=== PATIENT | male | born 1960 | race Caucasian/White ===

== ENCOUNTER → 2021-07-03 | Outpatient (CLI) | payer SELFPAY ==
[~2021-07-03] MED LIST: IBUP80TA PO; OMEP-221 PO
== END ==
LOC: M LABSMTC 11:29
PROVIDERS: ATTEND Anesthesiology
DX: Z01.812 Encounter for preprocedural laboratory examination (principal)

== ENCOUNTER 2021-07-08 10:41 | Day surgery (SDC) | payer OTHER ==
[~2021-07-08] VITALS: Ht 188 cm; Wt 103.0 kg
[~2021-07-08 10:41] MED LIST changes: +NS 1,000 ML IV ONE
[2021-07-08] MEDS ORDERED: propofoL 200 MG/20 ML VIAL As Ordered ONE ×2 (12:07→12:28)
[2021-07-08] MEDS ORDERED: LIDOCAINE 2% 100MG/5ML SDV (FOR ANES.) As Ordered ONE (12:07)
[2021-07-08] MEDS ORDERED: fentaNYL 100 MCG/2 ML INJECTION (J3010) As Ordered ONE (12:07)
--- NOTE | 2021-07-08 12:28 | ROOR ---
Patient Name: Luis Fernando Foster Procedure Date: 07/08/2021 12:09 PM Date of : 1960 Age: 61 Room: [facility] Gender: Male Note Status: Finalized Procedure: Upper Endoscopy + Biopsies Indications: Heartburn, Follow-up of Plummer's esophagus Providers: Clint Butler MD Referring MD: Sarah RODRIGUEZ NP Requesting Provider: Medicines: Monitored Anesthesia Care Complications: No immediate complications. Procedure: Pre-Anesthesia Assessment: - The heart rate, respiratory rate, oxygen saturations, blood pressure, adequacy of pulmonary ventilation, and response to care were monitored throughout the procedure. The Endoscope was introduced through the mouth, and advanced to the second part of duodenum. The upper GI endoscopy was accomplished without difficulty. The patient tolerated the procedure well. Findings: The Z-line was irregular and was found 35 cm from the incisors. Multiple biopsies were obtained with cold forceps for evaluation to rule out Plummer's Esophagus randomly at the gastroesophageal junction. A medium-sized hiatal hernia was present. Localized mild inflammation characterized by congestion (edema) and erosions was found in the gastric antrum. Biopsies were taken with a cold forceps for Helicobacter pylori testing. The exam of the duodenum was otherwise normal. Impression: - Z-line irregular, 35 cm from the incisors. - Medium-sized hiatal hernia. - Mucosal changes suspicious for gastritis. Biopsied. - Multiple biopsies were obtained at the gastroesophageal junction. - The examination was otherwise normal. Recommendation: - Patient has a contact number available for emergencies. The signs and symptoms of potential delayed complications were discussed with the patient. Return to normal activities tomorrow. Written discharge instructions were provided to the patient. - Resume previous diet. - Discharge patient to home. - Follow an antireflux regimen. - Continue present medications. - Await pathology results. - Telephone GI clinic for pathology results in 1 week. - Return to referring physician. - The findings and recommendations were discussed with the patient. Procedure Code(s): --- Professional --- 97040, Esophagogastroduodenoscopy, flexible, transoral; with biopsy, single or multiple Diagnosis Code(s): --- Professional --- K22.8, Other specified diseases of esophagus K44.9, Diaphragmatic hernia without obstruction or gangrene K31.89, Other diseases of stomach and duodenum K22.70, Plummer's esophagus without dysplasia R12, Heartburn CPT copyright 2019 [employer] [place] [employer] [employer]. All rights reserved. The codes documented in this report are preliminary and upon lead based paint technician review may be revised to meet current compliance requirements. Clint Butler MD Clint Butler MD 07/08/2021 12:27:49 PM Electronically signed by Clint Butler MD Number of Addenda: 0 Note Initiated On: 07/08/2021 12:09 PM Estimated Blood Loss: Estimated blood loss: none.
--- NOTE | 2021-07-08 12:46 | ROOR ---
Patient Name: Luis Fernando Foster Procedure Date: 07/08/2021 12:11 PM Date of : 1960 Age: 61 Room: [facility] Gender: Male Note Status: Finalized Procedure: Total Colonoscopy to Cecum + Cold Snare Polypectomy + Hemoclips Indications: Change in bowel habits, Constipation Providers: Clint Butler MD Referring MD: Sarah RODRIGUEZ NP Requesting Provider: Medicines: Monitored Anesthesia Care Complications: No immediate complications. Procedure: Pre-Anesthesia Assessment: - The heart rate, respiratory rate, oxygen saturations, blood pressure, adequacy of pulmonary ventilation, and response to care were monitored throughout the procedure. The Colonoscope was introduced through the anus and advanced to the cecum, identified by appendiceal orifice and ileocecal valve. The colonoscopy was performed without difficulty. The patient tolerated the procedure well. The quality of the bowel preparation was poor. Findings: The perianal and digital rectal examinations were normal. Non-bleeding internal hemorrhoids were found during retroflexion. The hemorrhoids were small and Grade I (internal hemorrhoids that do not prolapse). A small polyp was found in the transverse colon. The polyp was sessile. The polyp was removed with a cold snare. Resection and retrieval were complete. To prevent bleeding after the polypectomy, one hemostatic clip was successfully placed. There was no bleeding at the end of the procedure. The exam was otherwise without abnormality on direct and retroflexion views. Impression: - Preparation of the colon was poor. - Non-bleeding internal hemorrhoids. - One small polyp in the transverse colon, removed with a cold snare. Resected and retrieved. Clip was placed. - The examination was otherwise normal on direct and retroflexion views. - The exam was otherwise normal to the cecum. Recommendation: - Patient has a contact number available for emergencies. The signs and symptoms of potential delayed complications were discussed with the patient. Return to normal activities tomorrow. Written discharge instructions were provided to the patient. - High fiber diet. - Discharge patient to home. - Continue present medications. - Await pathology results. - Telephone GI clinic for pathology results in 1 week. - Repeat colonoscopy in 5 years for surveillance based on pathology results. - Return to referring physician. - The findings and recommendations were discussed with the patient. Procedure Code(s): --- Professional --- 56627, Colonoscopy, flexible; with removal of tumor(s), polyp(s), or other lesion(s) by snare technique Diagnosis Code(s): --- Professional --- K64.0, First degree hemorrhoids K63.5, Polyp of colon R19.4, Change in bowel habit K59.00, Constipation, unspecified CPT copyright 2019 [employer]. All rights reserved. The codes documented in this report are preliminary and upon corporate compliance officer review may be revised to meet current compliance requirements. Clint Butler MD Clint Butler MD 07/08/2021 12:46:21 PM Electronically signed by Clint Butler MD Number of Addenda: 0 Note Initiated On: 07/08/2021 12:11 PM Estimated Blood Loss: Estimated blood loss: none.
[2021-07-08 13:12] VITALS: BP 169/89
== END 2021-07-08 13:16 | disposition home or self-care (01) ==
LOC: M OPP 10:41
PROVIDERS: ATTEND Internal Medicine Gastroenterology
DX: D12.3 Benign neoplasm of transverse colon (principal); K64.0 First degree hemorrhoids; K59.00 Constipation, unspecified; K31.89 Other diseases of stomach and duodenum; K22.8 Other specified diseases of esophagus; K44.9 Diaphragmatic hernia without obstruction or gangrene; K22.70 Barrett's esophagus without dysplasia; R12 Heartburn; F17.210 Nicotine dependence, cigarettes, uncomplicated
CPT/HCPCS: 43239; 45385; 88305; J3010

== ENCOUNTER → 2022-01-06 | Outpatient (CLI) | payer OTHER ==
[~2022-01-06] MED LIST changes: -NS 1,000 ML IV ONE; -OMEP-221 PO; +OMEP40CA5 PO
== END ==
LOC: M PAIN 11:00
PROVIDERS: ATTEND Anesthesiology
DX: M79.18 Myalgia, other site (principal); M54.50 Low back pain, unspecified; G40.909 Epilepsy, unspecified, not intractable, without status epilepticus; F17.210 Nicotine dependence, cigarettes, uncomplicated; Z79.899 Other long term (current) drug therapy

== ENCOUNTER → 2023-08-19 | Outpatient (CLI) | payer OTHER ==
[~2023-08-19] MED LIST changes: +PROHANCE 279.3MG/ML 15ML VIAL ONE; +PROHANCE 279.3MG/ML 5ML VIAL ONE
== END ==
LOC: M PLAIMG 11:35
PROVIDERS: ATTEND Urology
DX: N40.2 Nodular prostate without lower urinary tract symptoms (principal)